=== PATIENT | female | born 1940 | race Caucasian/White ===

== ENCOUNTER 2020-02-02 10:54 | Inpatient (IN) ==
[2020-02-02] MEDS ORDERED: HYDROmorphone 2 MG/1 ML VIAL IV STA ×2 (11:18→12:18)
[2020-02-02] MEDS ORDERED: ONDANSETRON 4 MG/2 ML VIAL IV STA (11:18)
[2020-02-02 11:52] LABS: Basophils # 0.1 10*3/uL (0.0-0.2); Basophils % 0.8 % (0.0-0.8); Eosinophils # 0.1 10*3/uL (0.0-0.87); Eosinophils % 1.3 % (0.00-10.9); Hematocrit 34.9 VOL% (35.7-47.0); Hemoglobin 12.3 GM/DL (12.0-16.0); Immature Granulocytes % 0.5 %; Immature Granulocytes Absolute 0.04 #; Lymphocytes # 0.8 10*3/uL (1.4-4.0); Mean Corpuscular HGB Conc 35.2 GM/DL (32-36); Mean Corpuscular Volume 96.7 FL (87-102); Mean Platelet Volume 9.6 FL (9.6-12.0); Monocytes % 4.3 % (1.7-12.7); Neutrophils % 82.1 % (38.7-73.9); Platelet Count 141 T/CUMM (130-400); Red Blood Count 3.61 MC/CUMM (3.8-5.5); Red Cell Distribution Width 11.9 % (9.3-17.3); White Blood Count 7.6 T/CUMM (4-12)
[2020-02-02 12:02] LABS: INR 1.1; PT Patient Result 11.4 SECS (9.8-11.9); Partial Thromboplastin Time 25.6 SECS (23.9-33.8)
[2020-02-02 12:06] LABS: Calcium 9.2 MG/DL (8.5-10.1); Osmolality,Calculated 261.5 MOS/KG (273-304)
[2020-02-02] MEDS ORDERED: DOCUSATE SODIUM 100 MG CAPSULE PO PRN (13:47)
[2020-02-02] MEDS ORDERED: ALUMINUM/MAGNES/SIMETH MAX STR 30 ML UDCUP PO PRN (13:47)
[2020-02-02] MEDS ORDERED: guaiFENesin/DM ER 600-30 MG TABLET PO PRN (13:47)
[2020-02-02] MEDS ORDERED: hydrALAZINE 20 MG/1 ML VIAL IV PRN (13:47)
[2020-02-02] MEDS ORDERED: DEXTROSE 50% 25 GM/50 ML VIAL IV PRN (13:47)
[2020-02-02] MEDS ORDERED: GLUCAGON 1 MG VIAL IM PRN (13:47)
[2020-02-02] MEDS ORDERED: PROMETHAZINE 25 MG/1 ML VIAL IM PRN (13:47)
[2020-02-02] MEDS ORDERED: diphenhydrAMINE CAP 25 MG CAPSULE PO PRN (13:47)
[2020-02-02] MEDS ORDERED: LACTULOSE 20 GM/30 ML UDCUP PO PRN (13:47)
[2020-02-02] MEDS ORDERED: BISACODYL 5 MG TABLET PO PRN (13:47)
[2020-02-02] MEDS ORDERED: NICOTINE 21 MG/24 HR PATCH TRANSDERM PRN (13:47)
[2020-02-02] MEDS ORDERED: ACETAMINOPHEN 325 MG TABLET PO PRN (13:47)
[2020-02-02] MEDS ORDERED: SIMETHICONE CHEW 125 MG TABLET PO PRN (13:47)
[2020-02-02] MEDS: HYDROmorphone 2 MG/1 ML VIAL IV PRN (19:42)
[2020-02-02] MEDS: ALBUTEROL 2.5 MG/3 ML NEB RESP TX SCH (20:15)
[2020-02-02] MEDS: ENOXAPARIN 40 MG/0.4 ML SYRINGE SUBCUT SCH (20:52)
[2020-02-02] MEDS: SODIUM CHLORIDE 0.9% 1,000 ML IV SCH (20:55)
[2020-02-03] MEDS: HYDROmorphone 2 MG/1 ML VIAL IV PRN ×2 (00:23→04:38)
[2020-02-03] MEDS: ALBUTEROL 2.5 MG/3 ML NEB RESP TX SCH ×4 (01:09→19:45)
[2020-02-03 06:18] LABS: Basophils % 0.5 % (0.0-0.8); Eosinophils # 0.1 10*3/uL (0.0-0.87); Eosinophils % 1.5 % (0.00-10.9); Hematocrit 31.7 VOL% (35.7-47.0); Hemoglobin 11.1 GM/DL (12.0-16.0); Immature Granulocytes % 0.3 %; Immature Granulocytes Absolute 0.02 #; Lymphocytes # 0.7 10*3/uL (1.4-4.0); Lymphocytes % 11.5 % (21.3-54.2); Mean Corpuscular Volume 94.9 FL (87-102); Monocytes % 6.8 % (1.7-12.7); Neutrophils % 79.4 % (38.7-73.9); Platelet Count 112 T/CUMM (130-400); Red Blood Count 3.34 MC/CUMM (3.8-5.5); Red Cell Distribution Width 11.9 % (9.3-17.3); White Blood Count 6.2 T/CUMM (4-12)
[2020-02-03 06:45] LABS: Albumin 3.1 G/DL (3.4-5.0); Bilirubin,Total 0.9 MG/DL (0.2-1.0); Calcium 8.7 MG/DL (8.5-10.1); Osmolality,Calculated 258.8 MOS/KG (273-304); Risk Ratio 3.49; Thyroid Stimulating Hormone 2.46 uIU/ml (0.358-3.74); Total Protein 6.2 G/DL (6.4-8.3)
[2020-02-03] MEDS ORDERED: HYDROmorphone 2 MG/1 ML VIAL ONE (07:39)
[2020-02-03] MEDS ORDERED: ONDANSETRON 4 MG/2 ML VIAL ONE ×2 (07:39→12:28)
[2020-02-03] MEDS ORDERED: FAMOTIDINE 20 MG/2 ML VIAL IV ONE (08:14)
[2020-02-03] MEDS: PANTOPRAZOLE 40 MG TABLET PO SCH (09:42)
[2020-02-03] MEDS ORDERED: ceFAZolin 1,000 MG VIAL ONE ×2 (10:15→10:28)
[2020-02-03] MEDS ORDERED: ROPIVACAINE 0.5% 30 ML VIAL ONE ×2 (11:51→12:27)
[2020-02-03] MEDS ORDERED: LIDOCAINE 2% 5 ML VIAL ONE (12:27)
[2020-02-03] MEDS ORDERED: propofoL 200 MG/20 ML VIAL IV ONE (12:27)
[2020-02-03] MEDS ORDERED: ePHEDrine 50 MG/ML VIAL ONE (12:27)
[2020-02-03] MEDS ORDERED: ROCURONIUM 100 MG/10 ML VIAL IV ONE (12:28)
[2020-02-03] MEDS ORDERED: PHENYLEPHRINE 1 MG/10 ML SYRINGE IV ONE (12:28)
[2020-02-03] MEDS ORDERED: LACTATED RINGERS 1,000 ML IV ONE (12:28)
[2020-02-03] MEDS: SODIUM CHLORIDE 0.9% 1,000 ML IV SCH (14:51)
[2020-02-03] MEDS ORDERED: oxyCODONE/ACETAMINOPHEN 5-325 MG TABLET PO PRN (15:02)
[2020-02-03] MEDS: clonazePAM 0.5 MG TABLET PO SCH (20:18)
[2020-02-03] MEDS: ENOXAPARIN 40 MG/0.4 ML SYRINGE SUBCUT SCH (20:19)
[2020-02-04] MEDS: ceFAZolin 1,000 MG in SYRINGE 1 EACH IV SCH ×2 (03:12→12:40)
[2020-02-04] MEDS: SODIUM CHLORIDE 0.9% 1,000 ML IV SCH (05:29)
[2020-02-04 06:28] LABS: Basophils % 0.5 % (0.0-0.8); Eosinophils # 0.1 10*3/uL (0.0-0.87); Hematocrit 28.1 VOL% (35.7-47.0); Hemoglobin 9.7 GM/DL (12.0-16.0); Immature Granulocytes % 0.2 %; Immature Granulocytes Absolute 0.01 #; Lymphocytes # 0.6 10*3/uL (1.4-4.0); Lymphocytes % 9.7 % (21.3-54.2); Mean Corpuscular HGB Conc 34.5 GM/DL (32-36); Mean Corpuscular Volume 97.2 FL (87-102); Mean Platelet Volume 10.5 FL (9.6-12.0); Monocytes % 7.5 % (1.7-12.7); Neutrophils % 81.1 % (38.7-73.9); Platelet Count 93 T/CUMM (130-400); Red Blood Count 2.89 MC/CUMM (3.8-5.5); White Blood Count 5.9 T/CUMM (4-12)
[2020-02-04 06:45] LABS: Albumin 2.6 G/DL (3.4-5.0); Bilirubin,Total 1.8 MG/DL (0.2-1.0); Calcium 8.4 MG/DL (8.5-10.1); Osmolality,Calculated 265.4 MOS/KG (273-304); Total Protein 5.7 G/DL (6.4-8.3)
[2020-02-04] MEDS: ALBUTEROL 2.5 MG/3 ML NEB RESP TX SCH ×4 (07:31→19:40)
[2020-02-04] MEDS ORDERED: POTASSIUM CHLORIDE 20 MEQ TABLET PO PRN (08:00)
[2020-02-04] MEDS ORDERED: MAGNESIUM SULF RIDER 2 GM in PREMIX 1 EACH IV PRN (08:17)
[2020-02-04] MEDS ORDERED: MAGNESIUM SULF RIDER 4 GM in PREMIX 1 EACH IV PRN (08:17)
[2020-02-04] MEDS: METOPROLOL SUCCINATE XL 100 MG TABLET PO SCH (09:25)
[2020-02-04] MEDS: PANTOPRAZOLE 40 MG TABLET PO SCH (09:25)
[2020-02-04] MEDS: amLODIPine 5 MG TABLET PO SCH (09:25)
[2020-02-04] MEDS: OLMESARTAN 20 MG TABLET PO SCH (09:25)
[2020-02-04] MEDS: hydroCHLOROthiazide 12.5 MG CAPSULE PO SCH (09:25)
[2020-02-04] MEDS ORDERED: ceFAZolin 1,000 MG in SYRINGE 1 EACH IV SCH (13:00)
[2020-02-04] MEDS ORDERED: ceFAZolin 1,000 MG in SYRINGE 1 EACH IV ONE (13:00)
[2020-02-04] MEDS ORDERED: ZIPRASIDONE 20 MG/1 ML VIAL IM ONE (13:05)
[2020-02-04] MEDS: traZODone 50 MG TABLET PO SCH (20:54)
[2020-02-04] MEDS: clonazePAM 0.5 MG TABLET PO SCH (20:54)
[2020-02-04] MEDS: ENOXAPARIN 40 MG/0.4 ML SYRINGE SUBCUT SCH (20:54)
[2020-02-05] MEDS: ALBUTEROL 2.5 MG/3 ML NEB RESP TX SCH ×4 (00:21→19:30)
[2020-02-05 07:00] LABS: Basophils % 0.4 % (0.0-0.8); Eosinophils # 0.1 10*3/uL (0.0-0.87); Eosinophils % 0.8 % (0.00-10.9); Hematocrit 32.1 VOL% (35.7-47.0); Immature Granulocytes % 0.3 %; Immature Granulocytes Absolute 0.03 #; Lymphocytes # 0.6 10*3/uL (1.4-4.0); Mean Corpuscular HGB Conc 34.3 GM/DL (32-36); Mean Corpuscular Volume 98.8 FL (87-102); Mean Platelet Volume 11.1 FL (9.6-12.0); Monocytes % 8.5 % (1.7-12.7); Red Blood Count 3.25 MC/CUMM (3.8-5.5); Red Cell Distribution Width 12.1 % (9.3-17.3)
[2020-02-05 07:04] LABS: Platelet Count 80 T/CUMM (130-400)
[2020-02-05] MEDS: METOPROLOL SUCCINATE XL 100 MG TABLET PO SCH (08:52)
[2020-02-05] MEDS: hydroCHLOROthiazide 12.5 MG CAPSULE PO SCH (08:52)
[2020-02-05] MEDS: amLODIPine 5 MG TABLET PO SCH (08:52)
[2020-02-05] MEDS: OLMESARTAN 20 MG TABLET PO SCH (08:52)
[2020-02-05] MEDS: PANTOPRAZOLE 40 MG TABLET PO SCH (08:53)
[2020-02-05 09:27] LABS: Calcium 8.9 MG/DL (8.5-10.1); Osmolality,Calculated 269.1 MOS/KG (273-304)
[2020-02-05 10:13] LABS: Albumin 2.6 G/DL (3.4-5.0); Bilirubin,Total 0.5 MG/DL (0.2-1.0); Total Protein 6.1 G/DL (6.4-8.3)
[2020-02-05] MEDS ORDERED: CYANOCOBALAMIN 1000 MCG/1 ML VIAL IM ONE (10:38)
[2020-02-05] MEDS ORDERED: oxyCODONE/ACETAMINOPHEN 5-325 MG TABLET PO PRN (10:42)
[2020-02-05] MEDS: traZODone 50 MG TABLET PO SCH ×2 (21:04)
[2020-02-05] MEDS: ENOXAPARIN 40 MG/0.4 ML SYRINGE SUBCUT SCH (21:04)
[2020-02-06] MEDS: ALBUTEROL 2.5 MG/3 ML NEB RESP TX SCH ×4 (01:28→19:50)
[2020-02-06 05:09] LABS: Basophils % 0.4 % (0.0-0.8); Eosinophils # 0.1 10*3/uL (0.0-0.87); Eosinophils % 1.1 % (0.00-10.9); Hematocrit 25.6 VOL% (35.7-47.0); Hemoglobin 8.9 GM/DL (12.0-16.0); Immature Granulocytes % 0.4 %; Immature Granulocytes Absolute 0.03 #; Lymphocytes % 14.6 % (21.3-54.2); Mean Corpuscular HGB Conc 34.8 GM/DL (32-36); Mean Corpuscular Volume 96.6 FL (87-102); Mean Platelet Volume 9.8 FL (9.6-12.0); Monocytes % 5.8 % (1.7-12.7); Neutrophils % 77.7 % (38.7-73.9); Platelet Count 109 T/CUMM (130-400); Red Blood Count 2.65 MC/CUMM (3.8-5.5); Red Cell Distribution Width 12.2 % (9.3-17.3)
[2020-02-06 05:31] LABS: Albumin 2.5 G/DL (3.4-5.0); Bilirubin,Total 0.6 MG/DL (0.2-1.0); Total Protein 5.9 G/DL (6.4-8.3)
[2020-02-06] MEDS: OLMESARTAN 20 MG TABLET PO SCH ×2 (09:55→11:23)
[2020-02-06] MEDS: CYANOCOBALAMIN 500 MCG TABLET PO SCH ×2 (09:55→11:23)
[2020-02-06] MEDS: PANTOPRAZOLE 40 MG TABLET PO SCH ×2 (09:55→11:23)
[2020-02-06] MEDS: hydroCHLOROthiazide 12.5 MG CAPSULE PO SCH ×2 (09:56→11:23)
[2020-02-06] MEDS: amLODIPine 5 MG TABLET PO SCH ×2 (09:56→11:23)
[2020-02-06] MEDS: METOPROLOL SUCCINATE XL 100 MG TABLET PO SCH (10:05)
[2020-02-06] MEDS: ENOXAPARIN 40 MG/0.4 ML SYRINGE SUBCUT SCH (21:06)
[2020-02-07] MEDS: ALBUTEROL 2.5 MG/3 ML NEB RESP TX SCH ×2 (02:55→07:38)
[2020-02-07 05:41] LABS: Basophils % 0.7 % (0.0-0.8); Eosinophils # 0.2 10*3/uL (0.0-0.87); Eosinophils % 3.6 % (0.00-10.9); Hematocrit 25.8 VOL% (35.7-47.0); Hemoglobin 8.7 GM/DL (12.0-16.0); Immature Granulocytes % 0.2 %; Immature Granulocytes Absolute 0.01 #; Lymphocytes # 0.8 10*3/uL (1.4-4.0); Lymphocytes % 14.9 % (21.3-54.2); Mean Corpuscular HGB Conc 33.7 GM/DL (32-36); Mean Corpuscular Volume 95.6 FL (87-102); Mean Platelet Volume 10.3 FL (9.6-12.0); Monocytes % 10.7 % (1.7-12.7); Neutrophils % 69.9 % (38.7-73.9); Platelet Count 128 T/CUMM (130-400); Red Cell Distribution Width 12.1 % (9.3-17.3); White Blood Count 5.5 T/CUMM (4-12)
[2020-02-07 06:12] LABS: Calcium 9.1 MG/DL (8.5-10.1); Osmolality,Calculated 275.8 MOS/KG (273-304)
[2020-02-07 06:13] LABS: Calcium 9.2 MG/DL (8.5-10.1)
[2020-02-07] MEDS ORDERED: POTASSIUM CHLORIDE 20 MEQ TABLET PO SCH (09:00)
[2020-02-07] MEDS: amLODIPine 5 MG TABLET PO SCH (09:29)
[2020-02-07] MEDS: PANTOPRAZOLE 40 MG TABLET PO SCH (09:29)
[2020-02-07] MEDS: OLMESARTAN 20 MG TABLET PO SCH (09:29)
[2020-02-07] MEDS: CYANOCOBALAMIN 500 MCG TABLET PO SCH (09:29)
[2020-02-07] MEDS: hydroCHLOROthiazide 12.5 MG CAPSULE PO SCH (09:29)
[2020-02-07] MEDS: METOPROLOL SUCCINATE XL 100 MG TABLET PO SCH (09:29)
[2020-02-07 10:44] LABS: Calcium 8.7 MG/DL (8.5-10.1)
[2020-02-07 10:45] LABS: Albumin 2.3 G/DL (3.4-5.0); Bilirubin,Total 0.7 MG/DL (0.2-1.0); Total Protein 5.7 G/DL (6.4-8.3)
[2020-02-07 11:30] VITALS: BP 93/55
== END 2020-02-07 13:58 | disposition swing bed (61) | DRG 470 ==
LOC: EDBD → EDUNIT# → N.ED 10:54 → N.EDINP 13:47 → SUATTDRO 13:47 → N.3E 15:06
PROVIDERS: ADMIT Internal Medicine; ATTEND Internal Medicine

== ENCOUNTER 2021-04-07 13:17 | Inpatient (IN) ==
[2021-04-07 14:28] LABS: Basophils % 0.5 % (0.0-0.8); Eosinophils % 0.3 % (0.00-10.9); Hematocrit 36.3 VOL% (35.7-47.0); Immature Granulocytes % 0.3 %; Immature Granulocytes Absolute 0.03 #; Lymphocytes # 0.7 10*3/uL (1.4-4.0); Lymphocytes % 7.9 % (21.3-54.2); Mean Corpuscular HGB Conc 33.1 GM/DL (32-36); Mean Platelet Volume 10.2 FL (9.6-12.0); Monocytes % 4.6 % (1.7-12.7); Neutrophils % 86.4 % (38.7-73.9); Platelet Count 132 T/CUMM (130-400); Red Blood Count 3.82 MC/CUMM (3.8-5.5); White Blood Count 8.6 T/CUMM (4-12)
[2021-04-07 14:37] LABS: INR 1.1; PT Patient Result 12.2 SECS (10.5-12.0); Partial Thromboplastin Time 28.5 SECS (23.8-32.1)
[2021-04-07 14:43] LABS: Albumin 3.2 G/DL (3.4-5.0); Bilirubin,Total 0.6 MG/DL (0.20-1.00); Calcium 9.3 MG/DL (8.5-10.1); Potassium 3.5 MMOL/L (3.5-5.1); Total Protein 6.6 G/DL (6.4-8.2)
[2021-04-07] MEDS ORDERED: ONDANSETRON 4 MG/2 ML VIAL IV PRN (15:28)
[2021-04-07] MEDS ORDERED: ACETAMINOPHEN 325 MG TABLET PO PRN (15:28)
[2021-04-07] MEDS ORDERED: GLUCAGON 1 MG VIAL IM PRN (15:28)
[2021-04-07] MEDS ORDERED: hydrALAZINE 20 MG/1 ML VIAL IV PRN (15:28)
[2021-04-07] MEDS ORDERED: HYDROmorphone 2 MG/1 ML VIAL IV PRN (15:34)
[2021-04-07] MEDS ORDERED: DEXTROSE 50% 25 GM/50 ML SYRINGE IV PRN (15:52)
[2021-04-07] MEDS: tiZANidine 4 MG TABLET PO SCH (20:44)
[2021-04-07] MEDS ORDERED: amLODIPine 5 MG TABLET PO SCH (21:00)
[2021-04-07] MEDS ORDERED: hydroCHLOROthiazide 12.5 MG CAPSULE PO SCH (21:00)
[2021-04-07] MEDS ORDERED: METOPROLOL SUCCINATE XL 50 MG TABLET PO SCH (21:00)
[2021-04-07] MEDS ORDERED: OLMESARTAN 20 MG TABLET PO SCH (21:00)
[2021-04-08 05:08] LABS: Basophils % 0.4 % (0.0-0.8); Eosinophils # 0.2 10*3/uL (0.0-0.87); Eosinophils % 2.3 % (0.00-10.9); Hematocrit 38.1 VOL% (35.7-47.0); Hemoglobin 12.9 GM/DL (12.0-16.0); Immature Granulocytes % 0.4 %; Immature Granulocytes Absolute 0.03 #; Lymphocytes # 0.8 10*3/uL (1.4-4.0); Lymphocytes % 10.9 % (21.3-54.2); Mean Corpuscular HGB Conc 33.9 GM/DL (32-36); Mean Corpuscular Volume 95.7 FL (87-102); Mean Platelet Volume 10.6 FL (9.6-12.0); Monocytes % 4.6 % (1.7-12.7); Neutrophils % 81.4 % (38.7-73.9); Platelet Count 95 T/CUMM (130-400); Red Blood Count 3.98 MC/CUMM (3.8-5.5); Red Cell Distribution Width 12.8 % (9.3-17.3)
[2021-04-08 05:28] LABS: Macrocytosis Slight
[2021-04-08 05:29] LABS: Platelet Estimate Decreased
[2021-04-08 05:33] LABS: Calcium 9.2 MG/DL (8.5-10.1); Osmolality,Calculated 272.8 MOS/KG (273-304); Potassium 3.6 MMOL/L (3.5-5.1)
[2021-04-08] MEDS ORDERED: ONDANSETRON 4 MG/2 ML VIAL IV PRN (06:16)
[2021-04-08] MEDS ORDERED: PROMETHAZINE INJ 25 MG in SODIUM CHLORIDE 0.9% 50 ML IV PRN (06:16)
[2021-04-08] MEDS ORDERED: MEPERIDINE 25 MG/1 ML VIAL IV PRN (06:16)
[2021-04-08] MEDS ORDERED: diphenhydrAMINE 50 MG/1 ML VIAL IV PRN (06:16)
[2021-04-08] MEDS ORDERED: HYDROmorphone 2 MG/1 ML VIAL IV PRN (06:16)
[2021-04-08] MEDS ORDERED: BUPIVACAINE SPINAL 0.75% 2 ML AMP SPINAL ONE (06:39)
[2021-04-08] MEDS ORDERED: ETOMIDATE 40 MG/20 ML VIAL IV ONE (06:40)
[2021-04-08] MEDS ORDERED: ACETAMINOPHEN INJ 1,000 MG/100 ML VIAL IV ONE (06:40)
[2021-04-08] MEDS ORDERED: PHENYLEPHRINE 1 MG/10 ML SYRINGE IV ONE ×3 (06:40→08:05)
[2021-04-08] MEDS ORDERED: propofoL 200 MG/20 ML VIAL IV ONE (06:40)
[2021-04-08] MEDS ORDERED: DEXMEDETOMIDINE 200 MCG/2 ML VIAL ONE (06:41)
[2021-04-08] MEDS ORDERED: BACITRACIN OINT 0.9 GM PACK TOP ONE (06:48)
[2021-04-08] MEDS ORDERED: fentaNYL 100 MCG/2 ML VIAL ONE (06:50)
[2021-04-08] MEDS ORDERED: ONDANSETRON 4 MG/2 ML VIAL ONE (06:55)
[2021-04-08] MEDS ORDERED: MAGNESIUM HYDROXIDE SUSP 30 ML UDCUP PO PRN (07:51)
[2021-04-08] MEDS ORDERED: ceFAZolin 1,000 MG VIAL ONE ×2 (07:54→08:15)
[2021-04-08] MEDS ORDERED: TRANEXAMIC ACID 1,000 MG/10 ML VIAL ONE (07:59)
[2021-04-08] MEDS ORDERED: SODIUM CHLORIDE 0.9% 100 ML IV ONE (08:11)
[2021-04-08] MEDS ORDERED: DEXAMETHASONE 4 MG/1 ML VIAL ONE (08:12)
[2021-04-08] MEDS: PANTOPRAZOLE 40 MG TABLET PO SCH (08:13)
[2021-04-08] MEDS: DOCUSATE SODIUM 100 MG CAPSULE PO SCH ×2 (08:13→20:57)
[2021-04-08] MEDS: LACTATED RINGERS 1,000 ML IV SCH (08:37)
[2021-04-08] MEDS: NICOTINE 21 MG/24 HR PATCH TRANSDERM SCH (12:21)
[2021-04-08] MEDS: tiZANidine 4 MG TABLET PO SCH (20:57)
[2021-04-09 05:18] LABS: Basophils % 0.3 % (0.0-0.8); Eosinophils # 0.1 10*3/uL (0.0-0.87); Hematocrit 36.7 VOL% (35.7-47.0); Hemoglobin 11.9 GM/DL (12.0-16.0); Immature Granulocytes % 0.3 %; Immature Granulocytes Absolute 0.02 #; Lymphocytes # 0.6 10*3/uL (1.4-4.0); Mean Corpuscular HGB Conc 32.4 GM/DL (32-36); Mean Corpuscular Volume 98.7 FL (87-102); Monocytes % 4.4 % (1.7-12.7); Platelet Count 104 T/CUMM (130-400); Red Blood Count 3.72 MC/CUMM (3.8-5.5); Red Cell Distribution Width 13.1 % (9.3-17.3); White Blood Count 7.9 T/CUMM (4-12)
[2021-04-09 05:40] LABS: Calcium 9.2 MG/DL (8.5-10.1); Osmolality,Calculated 269.2 MOS/KG (273-304); Potassium 4.1 MMOL/L (3.5-5.1)
[2021-04-09] MEDS: LACTATED RINGERS 1,000 ML IV SCH (07:24)
[2021-04-09] MEDS: DOCUSATE SODIUM 100 MG CAPSULE PO SCH ×2 (08:38→21:14)
[2021-04-09] MEDS: APIXABAN 2.5 MG TABLET PO SCH ×2 (08:38→21:14)
[2021-04-09] MEDS: PANTOPRAZOLE 40 MG TABLET PO SCH (08:38)
[2021-04-09] MEDS: NICOTINE 21 MG/24 HR PATCH TRANSDERM SCH (08:39)
[2021-04-09] MEDS: tiZANidine 4 MG TABLET PO SCH (21:14)
[2021-04-10 05:10] LABS: Basophils % 0.4 % (0.0-0.8); Eosinophils # 0.2 10*3/uL (0.0-0.87); Eosinophils % 3.7 % (0.00-10.9); Hematocrit 30.8 VOL% (35.7-47.0); Hemoglobin 10.2 GM/DL (12.0-16.0); Immature Granulocytes % 0.4 %; Immature Granulocytes Absolute 0.02 #; Lymphocytes # 0.8 10*3/uL (1.4-4.0); Lymphocytes % 14.7 % (21.3-54.2); Mean Corpuscular HGB Conc 33.1 GM/DL (32-36); Mean Corpuscular Volume 96.3 FL (87-102); Mean Platelet Volume 10.9 FL (9.6-12.0); Monocytes % 7.3 % (1.7-12.7); Neutrophils % 73.5 % (38.7-73.9); Platelet Count 107 T/CUMM (130-400); Red Cell Distribution Width 13.1 % (9.3-17.3); White Blood Count 5.6 T/CUMM (4-12)
[2021-04-10] MEDS: NICOTINE 21 MG/24 HR PATCH TRANSDERM SCH (08:42)
[2021-04-10] MEDS: APIXABAN 2.5 MG TABLET PO SCH (08:42)
[2021-04-10] MEDS: DOCUSATE SODIUM 100 MG CAPSULE PO SCH (08:42)
[2021-04-10] MEDS: PANTOPRAZOLE 40 MG TABLET PO SCH (08:42)
[2021-04-10 11:32] VITALS: BP 115/55
== END 2021-04-10 11:55 | disposition home health service (06) | DRG 482 ==
LOC: N.ED 13:17 → SUATTDRO 15:28 → N.EDINP 15:28 → N.3E 16:36
PROVIDERS: ADMIT Internal Medicine; ATTEND Internal Medicine